=== PATIENT | female | born 1985 | race Caucasian/White ===

== ENCOUNTER 2016-12-30 22:32 | Emergency (ER) | payer SELFPAY ==
[~2016-12-30] VITALS: Ht 167.6 cm; Wt 47.6 kg
[2016-12-30 23:04] VITALS: BP_SYST 103
[2016-12-31 00:48] VITALS: BP_SYST 110
== END 2016-12-31 00:48 | disposition home or self-care (01) ==
LOC: SED 22:32
DX: S00.96XA Insect bite (nonvenomous) of unspecified part of head, initial encounter (principal); S40.262A Insect bite (nonvenomous) of left shoulder, initial encounter; S40.261A Insect bite (nonvenomous) of right shoulder, initial encounter; R21 Rash and other nonspecific skin eruption; W57.XXXA Bitten or stung by nonvenomous insect and other nonvenomous arthropods, initial encounter; Y93.89 Activity, other specified; Y99.8 Other external cause status; Y92.89 Other specified places as the place of occurrence of the external cause
CPT/HCPCS: 99283